=== PATIENT | male | born 1940 | race Caucasian/White ===

== ENCOUNTER 2017-04-25 05:37 | Day surgery (SDC) | payer MEDICARE ==
[~2017-04-25] VITALS: Ht 180.3 cm; Wt 96.5 kg
[~2017-04-25 05:37] MED LIST: ALEN70TA5 PO; ASPI-496 PO; CARV12.52 PO; FLUO40CA2 PO; LISI-167 PO; LORA10TA3 PO; SIMV20TA3 PO
[2017-04-25 06:23] VITALS: BP 153/100
[2017-04-25] MEDS ORDERED: BUPIVACAINE/PF 0.5% ONE (06:58)
[2017-04-25] MEDS ORDERED: LIDOCAINE/PF 1%, 30ML ONE (06:59)
[2017-04-25] MEDS ORDERED: FENTANYL PF 250 MCG/5ML ONE (07:25)
[2017-04-25] MEDS ORDERED: MIDAZOLAM 1 MG/ML, 2ML ONE (07:26)
[2017-04-25] MEDS ORDERED: ACETAMINOPHEN 325 MG/10.15 ML UDC ONE (08:57)
[2017-04-25] MEDS ORDERED: ACETAMINOPHEN 650 MG/20.3 ML UDC ONE (08:57)
[2017-04-25] MEDS ORDERED: OXYcodone 5 MG/5 ML ORAL.SOL UDC ONE (08:58)
[2017-04-25] MEDS ORDERED: FENTANYL PF 100 MCG/2ML IV PRN (09:00)
[2017-04-25] MEDS ORDERED: ACETAMINOPHEN 325 MG TABLET PO PRN (09:00)
[2017-04-25] MEDS ORDERED: HYDROmorphone 1 MG/ML, 1ML IV PRN (09:00)
[2017-04-25] MEDS ORDERED: OXYcodone 5 MG/5 ML ORAL.SOL UDC PO PRN (09:00)
[2017-04-25] MEDS ORDERED: KETOROLAC 30 MG/1 ML IV PRN (09:00)
[2017-04-25] MEDS ORDERED: ONDANSETRON 2MG/ML, 2ML IVPush PRN (09:00)
[2017-04-25] MEDS ORDERED: MEPERIDINE/PF 25MG/0.5ML IVPush PRN (09:00)
[2017-04-25] MEDS ORDERED: LABETALOL 5MG/ML, 20ML IV PRN (09:00)
[2017-04-25] MEDS ORDERED: OMNIPAQUE 180 MG/ML, 20ML VIAL ONE (09:22)
[2017-04-25] MEDS ORDERED: CEFAZOLIN 1,000 MG ONE (11:07)
[2017-04-25] MEDS ORDERED: PROPOFOL 10 MG/ML, 20ML ONE (11:07)
[2017-04-25] MEDS ORDERED: ONDANSETRON 2MG/ML, 2ML ONE (11:07)
[2017-04-25] MEDS ORDERED: SUCCINYLCHOLINE 20 MG/ML, 10ML ONE (11:07)
== END 2017-04-25 11:10 ==
LOC: OUT 05:37
PROVIDERS: ATTEND Orthopaedic Surgery Orthopaedic Surgery of the Spine
DX: M80.08XA Age-related osteoporosis with current pathological fracture, vertebra(e), initial encounter for fracture (principal); I10 Essential (primary) hypertension; E78.5 Hyperlipidemia, unspecified; Z95.810 Presence of automatic (implantable) cardiac defibrillator
CPT/HCPCS: 22513; 72072; 88304; 88311; C1713; J0330; J0690; J2250; J2405; J2704; J3010; J3490; Q9965

== ENCOUNTER → 2017-06-23 | Outpatient (CLI) | payer MEDICARE ==
[~2017-06-23] MED LIST changes: +CALC1CAP8 PO; +CRAN1CAP2 PO; +DORZ10DR7 EACHEYE; +GLUC500T11 PO; +LUTE20TA PO; +MULT-224 PO
[2017-06-23 09:12] LABS: BLOOD UREA NITROGEN 16 mg/dL (7-18)
[2017-06-23 09:18] LABS: ASPARTATE AMINO TRANSFERASE 16 U/L (15-37)
== END | disposition home or self-care (01) ==
LOC: STAR 07:46
PROVIDERS: ATTEND Specialist
DX: Z01.818 Encounter for other preprocedural examination (principal); K63.5 Polyp of colon; I44.0 Atrioventricular block, first degree; I51.7 Cardiomegaly; R94.31 Abnormal electrocardiogram [ECG] [EKG]; I10 Essential (primary) hypertension; E78.5 Hyperlipidemia, unspecified; F41.9 Anxiety disorder, unspecified
CPT/HCPCS: 36415; 80053; 93005

== ENCOUNTER 2017-06-30 05:39 | Day surgery (SDC) | payer MEDICARE ==
[~2017-06-30] VITALS: Ht 180.3 cm; Wt 92.0 kg
[2017-06-30] MEDS ORDERED: LACTATED RINGERS 1,000 ML IV SCH (06:04)
[2017-06-30 06:20] VITALS: BP 144/97
[2017-06-30] MEDS ORDERED: PROPOFOL 10 MG/ML, 50ML ONE (07:31)
[2017-06-30] MEDS ORDERED: PROPOFOL 10 MG/ML, 20ML ONE (07:31)
== END 2017-06-30 10:05 ==
LOC: OUT 05:39
PROVIDERS: ATTEND Specialist
DX: Z09 Encounter for follow-up examination after completed treatment for conditions other than malignant neoplasm (principal); K63.5 Polyp of colon; K62.89 Other specified diseases of anus and rectum; K57.30 Diverticulosis of large intestine without perforation or abscess without bleeding; I10 Essential (primary) hypertension; Z98.890 Other specified postprocedural states; Z79.82 Long term (current) use of aspirin
CPT/HCPCS: 45380; 88305; J2704; J7120